=== PATIENT | male | born 2000 | race Caucasian/White ===

== ENCOUNTER → 2018-07-26 | Outpatient (CLI) | payer OTHER | LOC: COL.PUL 07-11 13:00 | DX: R06.02 Shortness of breath (principal) | CPT/HCPCS: J7674 ==

== ENCOUNTER → 2018-09-04 | Outpatient (CLI) | payer OTHER | LOC: COL.VAS 08-30 09:00 | DX: R06.02 Shortness of breath (principal) ==

== ENCOUNTER → 2018-11-11 | Outpatient (CLI) | payer OTHER | LOC: COL.PUL 10-16 13:00 | DX: R06.02 Shortness of breath (principal) | CPT/HCPCS: J7674 ==